=== PATIENT | male | born 1960 | race Caucasian/White ===

== ENCOUNTER 2018-02-04 16:04 | Emergency (ER) | payer OTHER ==
[~2018-02-04] VITALS: Ht 167.6 cm; Wt 131.5 kg
[~2018-02-04 16:04] MED LIST: ACETAMINOPHEN-1 EAC1 PO; CEPHALEXIN 500500 M3 PO; CIPROFLOXIN HC2.5 M1 OTIC; IBUPROFEN 800800 M1 PO
[2018-02-04] MEDS ORDERED: COZAAR 25 MG TA25 M1 PO (16:15)
[2018-02-04] MEDS ORDERED: LIPITOR80 MG PO (16:15)
[2018-02-04] MEDS ORDERED: XANAX XR0.5 MG PO (16:15)
[2018-02-04] MEDS ORDERED: CELEXA40 MG PO (16:15)
[2018-02-04] MEDS ORDERED: ZANTAC 150MG T150 MG PO (16:15)
[2018-02-04 16:20] LABS: URINE BILIRUBIN NEGATIVE (Negative); URINE BLOOD 2+ (Negative); URINE CLARITY CLEAR; URINE COLOR YELLOW; URINE GLUCOSE-RANDOM NEGATIVE (Negative); URINE KETONES NEGATIVE (Negative); URINE LEUKOCYTES-REFLEX NEGATIVE (Negative); URINE NITRITE-REFLEX NEGATIVE (Negative); URINE PROTEIN NEGATIVE (Negative); URINE SPECIFIC GRAVITY 1.015 (1.005-1.030); URINE UROBILINOGEN 0.2 E.U./dl (0.2-1.0)
[2018-02-04 16:27] LABS: ABSOLUTE EOSINOPHILS 0.3 thou/uL (0.0-0.7); ABSOLUTE LYMPHOCYTES 2.4 thou/uL (0.8-5.3); ABSOLUTE MONOCYTES 1.3 thou/uL (0.0-1.2); ABSOLUTE NEUTROPHILS 5.8 thou/uL (1.6-8.1); BASOPHILS 0.5 %; EOSINOPHILS 2.7 %; HEMATOCRIT 45.6 % (42.0-52.0); HEMOGLOBIN 15.1 gm/dL (14.0-18.0); LYMPHOCYTES 24.1 %; MCH 29.1 pg (26.0-34.0); MCHC 33.1 g/dL (28.0-37.0); MCV 87.9 fL (80.0-100.0); MONOCYTES 13.6 %; MPV 8.8 fl. (7.2-11.1); NUCLEATED RBCS 0 /100WBC; PLATELET COUNT* 273 thou/uL (150-400); POLYS 59.1 %; RBC 5.18 mil/uL (4.50-6.00); RDW-CV 14.9 % (10.5-14.5); WBC 9.8 thou/uL (4.0-11.0)
[2018-02-04 16:28] LABS: SQUAMOUS 0-3 Few /LPF (0-3)
[2018-02-04 16:29] LABS: BACTERIA-REFLEX None Seen /HPF (None Seen); CASTS None Seen /LPF (None Seen); CRYSTALS None Seen /LPF (None Seen); MUCUS 0-3 Light strn/LPF (None Seen); URINE RBC 3-10 Few /HPF (0-2); URINE WBC-REFLEX 0-5 Rare /HPF (0-5)
[2018-02-04 17:03] LABS: CALCIUM 8.8 mg/dL (8.5-10.1); CREATININE 1.1 mg/dL (0.6-1.3); POTASSIUM 3.7 mmol/L (3.5-5.1)
[2018-02-04 17:08] LABS: ALBUMIN 3.5 g/dL (3.4-5.0); TOTAL BILIRUBIN 0.3 mg/dL (<0.1-1.0); TOTAL PROTEIN 7.3 g/dL (6.4-8.2)
[2018-02-04] MEDS ORDERED: HYDROCODONE-AP1 EAC6 PO (17:17)
[2018-02-04] MEDS ORDERED: ZOFRAN4 MG PO (17:17)
[2018-02-04] MEDS ORDERED: FLOMAX0.4 MG PO (17:17)
[2018-02-04 17:47] VITALS: BP 138/60
== END 2018-02-04 17:47 | disposition home or self-care (01) ==
LOC: M.ERS 16:04
PROVIDERS: Nurse Practitioner Family
DX: N20.1 Calculus of ureter (principal); I10 Essential (primary) hypertension; J45.909 Unspecified asthma, uncomplicated; E78.00 Pure hypercholesterolemia, unspecified; F32.9 Major depressive disorder, single episode, unspecified; G47.30 Sleep apnea, unspecified

== ENCOUNTER 2018-02-15 12:00 | Emergency (ER) | payer OTHER ==
[~2018-02-15] VITALS: Ht 172.7 cm; Wt 138.9 kg
[~2018-02-15 12:00] MED LIST changes: +CELEXA40 MG PO; +COZAAR 25 MG TA25 M1 PO; +FLOMAX0.4 MG PO; +HYDROCODONE-AP1 EAC6 PO; +LIPITOR80 MG PO; +XANAX XR0.5 MG PO; +ZANTAC 150MG T150 MG PO; +ZOFRAN4 MG PO
[2018-02-15] MEDS ORDERED: ALLEGRA-D 12 H1 EAC1 PO (12:11)
[2018-02-15 12:19] LABS: ABSOLUTE EOSINOPHILS 0.2 thou/uL (0.0-0.7); ABSOLUTE LYMPHOCYTES 1.7 thou/uL (0.8-5.3); ABSOLUTE MONOCYTES 0.6 thou/uL (0.0-1.2); ABSOLUTE NEUTROPHILS 4.1 thou/uL (1.6-8.1); BASOPHILS 0.6 %; EOSINOPHILS 3.4 %; HEMATOCRIT 45.4 % (42.0-52.0); LYMPHOCYTES 25.1 %; MCH 29.3 pg (26.0-34.0); MCHC 33.1 g/dL (28.0-37.0); MCV 88.7 fL (80.0-100.0); MONOCYTES 8.4 %; MPV 8.7 fl. (7.2-11.1); NUCLEATED RBCS 0 /100WBC; PLATELET COUNT* 258 thou/uL (150-400); POLYS 62.5 %; RBC 5.12 mil/uL (4.50-6.00); RDW-CV 14.6 % (10.5-14.5); WBC 6.6 thou/uL (4.0-11.0)
[2018-02-15] MEDS ORDERED: ZOVIRAX800 MG PO (12:19)
[2018-02-15] MEDS ORDERED: PREDNISONE 10 M10 MG PO (12:19)
[2018-02-15 12:26] LABS: ANION GAP 7 mmol/L (7-16); BUN 16 mg/dL (7-18); CALCIUM 9.3 mg/dL (8.5-10.1); CHLORIDE 104 mmol/L (98-107); CO2 27 mmol/L (21-32); GLUCOSE 109 mg/dL (70-99); SODIUM 138 mmol/L (136-145)
[2018-02-15 12:33] LABS: ALKALINE PHOSPHATASE 71 U/L (46-116); SGOT 23 U/L (15-37); SGPT 52 U/L (30-65); TOTAL BILIRUBIN 0.5 mg/dL (<0.1-1.0); TOTAL PROTEIN 7.9 g/dL (6.4-8.2); TROPONIN-I LEVEL <0.06 ng/mL (<0.06)
[2018-02-15 13:00] VITALS: BP 144/75
--- NOTE | 2018-02-16 17:05 | EKG ---
[place] [address] ELECTROCARDIOGRAM REPORT Name: PEARSON,HARJINDER Daniel [facility] [id number] Admission: 02/15/18 Attend Phys: Discharge: 02/15/18 Date of : 64 Report #: [id number] THIS REPORT FOR: //name// [facility] ED Test Date: 2018-02-15 Test Time: 12:14:03 Pat Name: HARJINDER PEARSON Department: Room: Gender: M [facility] Coordinator: RANDOLPH : 1960 Requested By: Chava Tobar Order Number: [id number] MD: Griffin Tripp Measurements Intervals [place] Rate: 57 P: 44 OK: 180 QRS: 11 QRSD: 96 T: 19 QT: 428 QTc: 417 Interpretive Statements Sinus rhythm Abnormal R-wave progression, early transition Baseline wander in lead(s) II,III,aVF No previous ECG available for comparison Electronically Signed On 02-16-2018 17:05:03 CDT by Griffin Tripp [email or web address] <ELECTRONICALLY SIGNED> By: Griffin Tripp MD, [facility] 02/16/18 1705 13 Griffin Tripp MD, FACC /EPI
== END 2018-02-15 13:04 | disposition home or self-care (01) ==
LOC: M.ERS 12:00
PROVIDERS: Emergency Medicine Emergency Medical Services
DX: G51.0 Bell's palsy (principal); I10 Essential (primary) hypertension; J45.909 Unspecified asthma, uncomplicated; F32.9 Major depressive disorder, single episode, unspecified; E78.00 Pure hypercholesterolemia, unspecified; G47.30 Sleep apnea, unspecified

== ENCOUNTER 2018-09-24 15:23 | Emergency (ER) | payer OTHER ==
[~2018-09-24] VITALS: Ht 167.6 cm; Wt 134.3 kg
[~2018-09-24 15:23] MED LIST changes: +ALLEGRA-D 12 H1 EAC1 PO; +PREDNISONE 10 M10 MG PO; +ZOVIRAX800 MG PO
[2018-09-24] MEDS ORDERED: MODAFINIL200 MG PO (15:32)
[2018-09-24] MEDS ORDERED: KEFLEX500 M1 PO (15:45)
[2018-09-24 16:03] VITALS: BP 137/80
== END 2018-09-24 16:04 | disposition home or self-care (01) ==
LOC: M.ERS 15:23
DX: S91.332A Puncture wound without foreign body, left foot, initial encounter (principal); I10 Essential (primary) hypertension; E78.00 Pure hypercholesterolemia, unspecified; J45.909 Unspecified asthma, uncomplicated; G47.30 Sleep apnea, unspecified; F32.9 Major depressive disorder, single episode, unspecified; W22.8XXA Striking against or struck by other objects, initial encounter; Y93.89 Activity, other specified; Y92.89 Other specified places as the place of occurrence of the external cause; Y99.8 Other external cause status

== ENCOUNTER 2019-03-08 15:44 | Emergency (ER) | payer OTHER ==
[~2019-03-08] VITALS: Ht 167.6 cm; Wt 145.2 kg
[~2019-03-08 15:44] MED LIST changes: +KEFLEX500 M1 PO; +MODAFINIL200 MG PO
[2019-03-08] MEDS ORDERED: AUGMENTIN 875-1 EACH PO ×2 (16:16→16:36)
[2019-03-08 17:14] VITALS: BP 163/96
== END 2019-03-08 17:15 | disposition home or self-care (01) ==
LOC: M.ERS 15:44
DX: H60.91 Unspecified otitis externa, right ear (principal); F32.9 Major depressive disorder, single episode, unspecified; I10 Essential (primary) hypertension; J45.909 Unspecified asthma, uncomplicated; E78.00 Pure hypercholesterolemia, unspecified; G47.30 Sleep apnea, unspecified

== ENCOUNTER 2019-08-11 15:47 | Emergency (ER) | payer OTHER ==
[~2019-08-11] VITALS: Ht 167.6 cm; Wt 140.6 kg
[~2019-08-11 15:47] MED LIST changes: +AUGMENTIN 875-1 EACH PO
[2019-08-11] MEDS ORDERED: NORVASC 2.5 MG2.5 M1 PO (15:55)
[2019-08-11 16:34] VITALS: BP 126/56
== END 2019-08-11 16:36 | disposition home or self-care (01) ==
LOC: M.ERS 15:47
DX: S61.211A Laceration without foreign body of left index finger without damage to nail, initial encounter (principal); I10 Essential (primary) hypertension; J45.909 Unspecified asthma, uncomplicated; E78.00 Pure hypercholesterolemia, unspecified; G47.30 Sleep apnea, unspecified; W26.0XXA Contact with knife, initial encounter; Y93.89 Activity, other specified; Y92.89 Other specified places as the place of occurrence of the external cause; Y99.8 Other external cause status

== ENCOUNTER 2020-03-23 23:14 | Emergency (ER) | payer OTHER ==
[~2020-03-23] VITALS: Ht 170.2 cm; Wt 140.6 kg
[~2020-03-23 23:14] MED LIST changes: +NORVASC 2.5 MG2.5 M1 PO
[2020-03-23] MEDS ORDERED: EUTHYROX50 MCG PO (23:23)
[2020-03-23] MEDS ORDERED: PREVACID30 MG PO (23:23)
[2020-03-23] MEDS ORDERED: ZINC SULFATE220 MG PO (23:24)
[2020-03-23] MEDS ORDERED: NAPROSYN500 M1 PO (23:24)
[2020-03-24 00:47] LABS: URINE BILIRUBIN NEGATIVE (Negative); URINE BLOOD TRACE (Negative); URINE CLARITY CLEAR; URINE COLOR YELLOW; URINE GLUCOSE-RANDOM NEGATIVE (Negative); URINE KETONES 1+ (Negative); URINE LEUKOCYTES-REFLEX NEGATIVE (Negative); URINE NITRITE-REFLEX NEGATIVE (Negative); URINE PROTEIN NEGATIVE (Negative); URINE SPECIFIC GRAVITY 1.015 (1.005-1.030); URINE UROBILINOGEN 0.2 E.U./dl (0.2-1.0)
[2020-03-24 01:50] VITALS: BP 136/75
== END 2020-03-24 01:52 | disposition home or self-care (01) ==
LOC: M.ERS 23:14
PROVIDERS: Emergency Medicine
DX: N50.811 Right testicular pain (principal); Z20.828 Contact with and (suspected) exposure to other viral communicable diseases; N50.812 Left testicular pain; I10 Essential (primary) hypertension; J45.909 Unspecified asthma, uncomplicated; E78.00 Pure hypercholesterolemia, unspecified; Z79.899 Other long term (current) drug therapy

== ENCOUNTER → 2021-01-30 | Outpatient (CLI) | payer OTHER ==
[~2021-01-30] MED LIST changes: +EUTHYROX50 MCG PO; +NAPROSYN500 M1 PO; +PREVACID30 MG PO; +ZINC SULFATE220 MG PO
[2021-01-30 09:28] LABS: HEMATOCRIT 44.6 % (42.0-52.0); HEMOGLOBIN 14.7 gm/dL (14.0-18.0); MCH 28.6 pg (26.0-34.0); MCV 86.5 fL (80.0-100.0); MPV 7.8 fl. (7.2-11.1); RBC 5.15 mil/uL (4.50-6.00); RDW-CV 14.3 % (10.5-14.5)
[2021-01-30 09:45] LABS: ALBUMIN 3.9 g/dL (3.4-5.0); ALKALINE PHOSPHATASE 76 U/L (46-116); ANION GAP 9 mmol/L (7-16); BUN 16 mg/dL (7-18); CALCIUM 8.7 mg/dL (8.5-10.1); CHLORIDE 103 mmol/L (98-107); CHOLESTEROL 123 mg/dL (<200); CO2 26 mmol/L (21-32); CREATININE 1.1 mg/dL (0.6-1.3); GLUCOSE 100 mg/dL (70-99); HDL CHOLESTEROL 40 mg/dL (>40); LDL CHOLESTEROL 65 mg/dL (<100); POTASSIUM 4.2 mmol/L (3.5-5.1); SERUM ASSESSMENT Clear; SGOT 33 U/L (15-37); SGPT 51 U/L (30-65); SODIUM 138 mmol/L (136-145); TC:HDL 3.1 Ratio (Not establshd); TOTAL BILIRUBIN 0.5 mg/dL (<0.1-1.0); TOTAL PROTEIN 7.3 g/dL (6.4-8.2); TRIGLYCERIDE 93 mg/dL (<150); VLDL 19 mg/dL (<40)
[2021-01-31 02:06] LABS: GLYCOHEMOGLOBIN (HGB A1C) 5.7 % (4.8-5.6)
== END ==
LOC: M.LAB 09:10
PROVIDERS: ATTEND Internal Medicine
DX: I10 Essential (primary) hypertension (principal); E88.81 Metabolic syndrome and other insulin resistance; E78.1 Pure hyperglyceridemia; E02 Subclinical iodine-deficiency hypothyroidism

== ENCOUNTER 2021-02-23 10:54 | Emergency (ER) | payer OTHER ==
[~2021-02-23] VITALS: Ht 167.6 cm; Wt 136.1 kg
[2021-02-23 11:23] VITALS: BP 162/82
[2021-02-23] MEDS ORDERED: PREDNISONE 20 M20 M1 PO (11:27)
[2021-02-23] MEDS ORDERED: TRIAMCINOLONE A80 G2 TOP (11:27)
== END 2021-02-23 12:02 | disposition home or self-care (01) ==
LOC: M.ERS 10:54
DX: L25.9 Unspecified contact dermatitis, unspecified cause (principal); I10 Essential (primary) hypertension; J45.909 Unspecified asthma, uncomplicated; F31.9 Bipolar disorder, unspecified; E78.00 Pure hypercholesterolemia, unspecified; Z79.899 Other long term (current) drug therapy; Z79.891 Long term (current) use of opiate analgesic

== ENCOUNTER → 2021-02-25 | Outpatient (CLI) | payer OTHER ==
[~2021-02-25] MED LIST changes: +PREDNISONE 20 M20 M1 PO; +TRIAMCINOLONE A80 G2 TOP
== END ==
LOC: M.LAB 13:35
PROVIDERS: ATTEND Internal Medicine
DX: R97.20 Elevated prostate specific antigen [PSA] (principal)